=== PATIENT | male | born 1990 | race Caucasian/White ===

== ENCOUNTER 2025-03-18 04:03 | Emergency (ER) | payer OTHER ==
[2025-03-18] MEDS ORDERED: Naloxone 0.4 MG/ML SDV IVPUSH PRN (04:26)
[2025-03-18 04:31] LABS: BASOPHILS ABSOLUTE AUTO 0.2 K/mm3 (0.0-0.2); BASOPHILS PERCENT AUTO 0.5 % (0.0-1.0); EOSINOPHILS ABSOLUTE AUTO 0.1 K/mm3 (0.0-0.4); EOSINOPHILS PERCENT AUTO 0.2 % (0.0-6.0); IMMATURE GRAN ABSOLUTE AUTO 0.26 K/mm3 (0.00-0.05); IMMATURE GRAN PERCENT AUTO 0.9 % (0.0-0.4); LYMPHOCYTES ABSOLUTE AUTO 0.8 K/mm3 (1.0-4.8); LYMPHOCYTES PERCENT AUTO 2.6 % (24.0-44.0); MEAN PLATELET VOLUME 10.2 fl (9.4-12.4); MONOCYTES ABSOLUTE AUTO 1.4 K/mm3 (0.0-0.8); MONOCYTES PERCENT AUTO 4.9 % (0.0-8.0); NEUTROPHILS ABSOLUTE AUTO 26.9 K/mm3 (1.8-7.7); NEUTROPHILS PERCENT AUTO 90.9 % (41.0-71.0); NRBC ABSOLUTE 0.00 (0.00-0.02); NRBC PERCENT 0.0 % (0.0-0.2); PLATELET COUNT,PLT 193 K/mm3 (150-400); RED BLOOD CELL COUNT 5.60 M/mm3 (4.52-5.90); WHITE BLOOD CELL COUNT,WBC 29.56 K/mm3 (3.9-11.3)
[2025-03-18] MEDS: Ondansetron 4 MG/2 ML SDV IVPUSH ONE (04:34)
[2025-03-18 04:39] LABS: INR 1.27
[2025-03-18 04:50] LABS: A/G RATIO 1.0 (1-2); ALANINE AMINOTRANSFERASE,ALT 91.0 U/L (16-63); ASPARTATE AMNIOTRANSFERASE,AST 73.0 U/L (15-37); BILIRUBIN TOTAL 2.6 mg/dL (0.2-1.0); BLOOD UREA NITROGEN,BUN 21.0 mg/dL (7-18); CARBON DIOXIDE,CO2 29.0 mEq/L (21-32); CHLORIDE,CL 94.0 mEq/L (98-107); CREATINE KINASE,CK 104.0 U/L (39-308); CREATININE 1.6 mg/dL (0.7-1.3); EST CRCL DRUG DOSING (CG) 62.34 mL/min; ESTIMATED GFR 57.0 mL/min (>60); GLUCOSE RANDOM 230.0 mg/dL (70-99); PROTEIN TOTAL,TP 8.4 g/dl (6.4-8.2); SODIUM,NA 135.0 mEq/L (136-145)
[2025-03-18] MEDS: Iopamidol 612 MG/ML 100 ML Bottle IVPUSH ONE (04:51)
[2025-03-18] MEDS: Sodium Chloride 0.9% 10 ML Syringe FLUSH PRN (04:51)
[2025-03-18 04:53] LABS: ETHANOL BLOOD MEDICAL 0.0 gm% (0.00)
[2025-03-18 04:54] LABS: POTASSIUM,K 5.2 mEq/L (3.5-5.1)
[2025-03-18] MEDS ORDERED: Sodium Chloride 0.9% 10 ML Syringe FLUSH PRN (05:03)
[2025-03-18] MEDS: LORazepam 2 MG/ML SDV IVPUSH ONE ×3 (06:25→11:18)
[2025-03-18] MEDS: Lactated Ringers 1,000 ML IV ONE ×2 (06:36→10:24)
[2025-03-18] MEDS: Magnesium Sulf/Wat 4 GM/50 mL 4 GM in Premix Bag 1 BAG IV ONE (06:37)
[2025-03-18 08:12] LABS: LACTIC ACID 2.2 mmol/L (0.4-2.0)
[2025-03-18 08:30] LABS: APPEARANCE,URINE CLEAR (Clear); GLUCOSE,URINE NEGATIVE (Negative); OCCULT BLOOD,URINE TRACE-LYSED (Negative)
[2025-03-18 08:37] LABS: BUPRENORPHINE SCREEN,URINE NEGATIVE (CUTOFF=10); METHADONE SCREEN, URINE NEGATIVE (CUT0FF=200); METHAMPHETAMINES SCREEN, URINE NEGATIVE (CUTOFF=500); OXYCODONE SCREEN,URINE NEGATIVE (CUT0FF=100); THC SCREEN,URINE 20 NG/ML NEGATIVE (CUTOFF=50)
[2025-03-18 08:43] LABS: EPITHELIAL CELLS,URINE 0-5 /hpf (0-5)
[2025-03-18 09:04] LABS: AMPHETAMINES SCREEN, URINE NEGATIVE (CUTOFF=500)
== END 2025-03-18 11:25 ==
LOC: JD.ED 04:03
DX: K85.21 Alcohol induced acute pancreatitis with uninfected necrosis (principal); F10.930 Alcohol use, unspecified with withdrawal, uncomplicated; E86.0 Dehydration; Y90.9 Presence of alcohol in blood, level not specified
CPT/HCPCS: 36415; 74177; 76705; 80053; 80306; 80307; 81001; 82550; 83605; 83690; 83735; 85025; 85610; 87040; 93005; 96361; 96365; 96366; 96367; 96375; 96376; 99285; J1171; J2060; J2405; J2543; J3475; J7030; J7120; Q9967; 93010